=== PATIENT | female | born 1960 | race Caucasian/White ===

== ENCOUNTER → 2017-12-15 12:14 | Outpatient (CLI) | payer BC, SELFPAY ==
[2017-12-15 15:31] LABS: Absolute Neutrophil Count 2.3 X10^3/uL (2.0-7.7); Basophil# 0.05 X10^3/uL; Eosinophil# 0.14 X10^3/uL; Eosinophils% 2.9 % (0-5); Hematocrit 39.9 % (37-47); Hemoglobin 13.1 g/dl (12.0-15.0); Mean Corp Hgb Conc 32.8 g/gl (32-36); Mean Corpuscular Hgb 27.4 pg (27.0-32.0); Mean Corpuscular Volume 83.5 fL (81-99); Mean Platelet Vol. 12.2 fl (6.2-12.0); Monocyte# 0.27 X10^3/uL; Monocyte% 5.5 % (0-10); Neutrophil # 2.31 X10^3/uL (2.7-7.7); Neutrophil % 47.4 % (47-70); Platelet Count 225 K/mm3 (150-450); RBC Distribution Width CV 13.1 % (11.6-14.6); RBC Distribution Width SD 39.4 fl (35.1-43.9); Red Blood Count 4.78 M/mm3 (4.2-5.4); White Blood Count 4.9 K/mm3 (4.4-11.0)
[2017-12-15 15:46] LABS: Anion Gap 7 (5-15); BUN 13 mg/dL (7-18); BUN/Creat Ratio 16.2 RATIO (10-20); Calcium,Total 8.9 mg/dL (8.5-10.1); Chloride 110 mmol/L (98-107); Cholesterol 185 mg/dL (200); EST Glomerular Filtration Rate 78 mL/min (>60); Est Glom Filt Rate - Afr Amer 94 mL/min (>60); Glucose 95 mg/dL (74-106); High Density Lipoprotein 75 mg/dL; Sodium Level 142 mmol/L (136-145); Thyroid Stim Hormone (TSH) 1.35 uIU/mL (0.358-3.74); Triglycerides 67 mg/dL; Very Low Density Lipoprotein 13 mg/dL (5-40)
[2017-12-15 15:52] LABS: POSITIVE COUNT NO; POSITIVE DIFFERENTIAL NO; POSITIVE MORPHOLOGY NO
== END ==
LOC: MFPLAB 12:16
PROVIDERS: Family Provider Family Medicine; PCP Family Medicine; Visit Provider Family Medicine
DX: I10 Essential (primary) hypertension (principal)
CPT/HCPCS: 36415; 80048; 80061; 84443; 85025

== ENCOUNTER → 2020-08-13 09:20 | Outpatient (CLI) | payer BC, SELFPAY ==
[2020-08-13 12:52] LABS: Anion Gap 6 (5-15); BUN 14 mg/dL (7-18); BUN/Creat Ratio 15.1 RATIO (10-20); Calcium,Total 9.4 mg/dL (8.5-10.1); Chloride 104 mmol/L (98-107); Cholesterol 210 mg/dL (200); Creatinine, Serum 0.93 mg/dL (0.55-1.02); EST Glomerular Filtration Rate 65 mL/min (>60); Est Glom Filt Rate - Afr Amer 79 mL/min (>60); Glucose 83 mg/dL (74-106); High Density Lipoprotein 79 mg/dL; Potassium 3.8 mmol/L (3.5-5.1); Sodium Level 138 mmol/L (136-145); Triglycerides 57 mg/dL; Very Low Density Lipoprotein 11 mg/dL (5-40)
== END ==
PROVIDERS: PCP Family Medicine; Referring Provider Family Medicine; Visit Provider Family Medicine
DX: I10 Essential (primary) hypertension (principal)
CPT/HCPCS: 36415; 80048; 80061

== ENCOUNTER → 2022-06-30 | Outpatient (CLI) | payer OTHER, SELFPAY ==
[2022-07-18 20:12] LABS: HPV Reflexed? NOT INDICATED
== END | disposition home or self-care (01) ==
PROVIDERS: PCP Family Medicine; Referring Provider Family Medicine; Visit Provider Family Medicine
DX: Z12.4 Encounter for screening for malignant neoplasm of cervix (principal)
CPT/HCPCS: 87491; 87591; 88175; G0145

== ENCOUNTER → 2022-08-21 | Outpatient (CLI) | payer OTHER, SELFPAY ==
--- NOTE | 2022-08-21 10:00 | BI_ITS ---
MAMMOGRAPHY - BILATERAL SCREENING REASON FOR EXAM: Female, 62 years old. Routine annual screening examination. PERTINENT HISTORY: Non-contributory. TECHNIQUE: Digital bilateral breast samantha (3D mammographic acquisition) in the CC and MLO projections. 2-D mediolateral oblique (MLO) and craniocaudad (CC) views of both breasts were obtained. CAD: Full Field Digital Mammography with Computer Added Detection was performed. COMPARISON: 05/04/2015, 02/06/2011 FINDINGS: Breast Composition: The breasts are heterogeneously dense, which may obscure small masses. There are no dominant masses or suspicious calcifications. No other significant abnormalities are identified. There has been no significant change since the prior study. BI/SCRN MAMM (CAD)W/SAMANTHA BILAT IMPRESSION: Stable bilateral screening mammogram. Yearly follow-up mammogram recommended. (A) ASSESSMENT CATEGORY: BIRADS Category 1: Negative. A letter regarding these results will be sent to the patient by the facility within 30 days. Approximately 10% of breast cancers are not detected by mammography. A normal mammogram should not delay biopsy of a clinically suspicious abnormality. Electronically Signed: Bobby Mckee, at 17:14 EST ,
--- NOTE | 2022-08-21 10:05 | BD_ITS ---
STUDY: DUAL ENERGY X-RAY ABSORPTIOMETRY / DXA REASON FOR EXAM: Female, 62 years old. N95.9 TECHNIQUE: Bone Mineral Density (BMD) measurements of lumbar spine and bilateral hips were obtained. COMPARISON: Comparison is made with prior study dated 10/09/2010. FINDINGS: Lumbar Spine (L1-L4): g/cm2 (0.697) / T-score (-3.2) / Z-score (-1.5) Findings are suggestive of osteoporosis with a high fracture risk. Left Femur Total: g/cm2 (0.727) / T-score (-1.8) / Z-score (-0.6) Left Femoral Neck: g/cm2 (0.555) / T-score (-2.7) / Z-score (-1.2) Right Femur Total: g/cm2 (0.637) / T-score (-2.5) / Z-score (-1.3) Right Femoral Neck: g/cm2 (0.585) / T-score (-2.4) / Z-score (-0.9) The T-Scores on the most recent prior examination were: Lumbar Spine (L1-L4): There has been worsening of bone density since the previous examination. Left Femur Total: which represents a worsening of 5.8%. Right Femur Total: which represents a worsening of 16.5%. BD/Dexa Bone Density Study IMPRESSION: The patient is considered osteoporotic as outlined below according to World Soham Organization (WHO) criteria with a high fracture risk. There has been worsening of bone density since the previous examination. Reference Information: The T-score is the number of standard deviations above or below the standard which is normal for young adults at their peak bone mineral density. The World Health Organization (WHO) interprets the T-scores as follows: Above -1 Normal bone density Between -1 and -2.5 Osteopenia Equal to / or below -2.5 Osteoporosis As a practical clinical guideline, osteopenia may be graded as follows: Mild -1 through -1.5 Moderate -1.6 through -2.0 Severe -2.1 through -2.4 The Z-score is the number of standard deviations above or below age-matched controls. A Z-score of less than -1.5 would be considered abnormal. References: 1. NIH Osteoporosis and Related Bone Diseases www osteo.org 2. International Society for Clinical Densitometry www iscd.org 3. National Osteoporosis Foundation www nof.org Electronically Signed: Israel Herron MD at 15:47 EST ,
== END | disposition home or self-care (01) ==
LOC: OPBD 09:57
PROVIDERS: PCP Family Medicine; Visit Provider Family Medicine
DX: Z00.00 Encounter for general adult medical examination without abnormal findings (principal); Z12.31 Encounter for screening mammogram for malignant neoplasm of breast; M81.0 Age-related osteoporosis without current pathological fracture; N95.9 Unspecified menopausal and perimenopausal disorder
CPT/HCPCS: 77063; 77067; 77080

== ENCOUNTER → 2023-09-24 | Outpatient (CLI) | payer OTHER, SELFPAY ==
--- NOTE | 2023-09-24 11:01 | BI_ITS ---
MAMMOGRAPHY - BILATERAL SCREENING REASON FOR EXAM: Female, 63 years old. Routine annual screening examination. PERTINENT HISTORY: Non-contributory. TECHNIQUE: Digital bilateral breast samantha (3D mammographic acquisition) in the CC and MLO projections. 2-D mediolateral oblique (MLO) and craniocaudad (CC) views of both breasts were obtained. CAD: Full Field Digital Mammography with Computer Added Detection was performed. COMPARISON: Comparison is made with prior examination dated August 21, 2022 and May 04, 2015. FINDINGS: Breast Composition: The breasts are heterogeneously dense, which may obscure small masses. There are no dominant masses or suspicious calcifications. Stable benign-appearing bilateral axillary lymph nodes. No other significant abnormalities are identified. There has been no significant change since the prior study. BI/SCRN MAMM (CAD)W/SAMANTHA BILAT IMPRESSION: Stable bilateral screening mammogram. Yearly follow-up mammogram recommended. (A) ASSESSMENT CATEGORY: BIRADS Category 3: Probably Benign - Short-Interval Follow-up Suggested. A letter regarding these results will be sent to the patient by the facility within 30 days. Approximately 10% of breast cancers are not detected by mammography. A normal mammogram should not delay biopsy of a clinically suspicious abnormality. [id number] Electronically Signed: Israel Herron MD at 13:42 EST ,
--- OUTSIDE RECORDS SUMMARY | 2023-09-24 13:04 | XMS RPT_ITS | CCD ---
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 Name Role Phone PAULA HECK Attending Unavailable PAULA HECK Primary Care Unavailable PAULA HECK Admitting Unavailable Rosalinda Shrestha PA-C Unavailable Medications Current Medications Medication Drug Class(es) Dates Sig (Normalized) Sig (Original) Algae Based Calcium 333.33 mg-6.67 mcg-32 mg tablet (oral) (1 source) Algae Based Calc ium 333.33 mg-6.67 mcg-32 mg tablet (oral) ; (333.33 mg-6.67 mcg-32 mg) aspirin 81 mg delayed release oral tablet (1 source) Platelet Aggregation Inhibitor, Nonsteroidal Anti-inflammatory Drug aspirin 81 mg tablet,delayed release ; (81 mg) turmeric root extract 500 mg capsule (1 source) turmeric root extract 500 mg capsule ; 2 a day (500 mg) Problems Active Problems Problem Classification Problem Date Documented Da te Episodic/Chronic Osteoarthritis (3 sources) Unilateral primary osteoarthritis, left knee; Translations: [Unilateral primary osteoarthritis, left knee] Onset: 09-26-2020 Chronic Osteoporosis (2 sources) Osteoporosis; Translations: [Age-related osteoporosis without current pathological fracture] 09-18-2023 Chronic Other circulatory disease (2 sources) Elevated blood pressure; Translations: [Elevated blood-pressure reading, without diagnosis of hypertension] 09-18-2023 Episodic Other non-traumatic joint disorders (1 source) Pain in left knee; Translations: [Pain in left knee] Onset: 09-26-2020 Episodic Other screening for suspected conditions (not mental disorders or infectious disease) (6 sources) Patient encounter status; Translations: [Encounter for screening for diabetes mellitus] 09-18-2023 Episodic Other skin disorders (2 sources) Eruption; Translations: [Rash and other nonspecific skin eruption] 09-18-2023 Episodic Residual codes; unclassified (2 sources) Colon cancer screening declined; Translations: [Procedure and treatment not carried out because of patient's decision for unspecified reasons] 09-18-2023 Episodic Unclassified (1 source) Number of Children 09-18-2023 Past or Other Problems Problem Classification Problem Date Documented Da te Episodic/Chronic Unclassified (1 source) Well adult female - The patient feels well with minor complaints, has good energy level and is sleeping well. The patient has a balanced diet and takes supplemental vitamins. The patient does not exercise. The patient sleeps 5 hours per night. Note for Well adult female : Patient is fasting for labs today.Due for colon cancer screening - reports is has been many years since her last colonoscopy and she would like to avoid having another one if possible. She denies any family history of colon cancer.Patient reports an intermittent rash under her breasts for at least several months. She has been using a topical treatment OTC that she reports is effective, but the rash keeps returning.Patient reports that she was diagnosed just over a year ago with osteoporosis. Her previous doctor wanted to start her on a prescription medication, but she preferred to try supplementation with Vitamin D, calcium, and some other supplements. She would like to have a vitamin D level checked at this time.Patient also reports that her previous doctor diagnosed her with hypertension, but did not start her on any medication and told her not to worry about it. They had told her to buy a new blood pressure cuff, but she has not done so yet. She has been checking her blood pressure at home with her old cuff and does not have recorded readings with her today. She is concerned about her blood pressure, especially since her father had a stroke. 09-18-2023 Results Test Name Value Interpretation Reference Range Facil ity Vital Signs Date Time Vital Sign Value Performing Clinician Tyrese nelson 09-18-2023 08:22-0500 Body height 149.86 cm Rosalinda Shrestha PA-C Work Phone: [facility] 09-18-2023 08:22-0500 Body mass index (BMI) [Ratio] 28.07 kg/m2 Rosalinda Shrestha PA-C Work Phone: [facility] [employer]; [facility]. 09-18-2023 08:22-0500 Body surface area Derived from formula 1.58 m2 Rosalinda Shrestha PA-C Work Phone: [facility] [employer]; [facility] 09-18-2023 08:22-0500 Body weight 63.05 kg Rosalinda Shrestha PA-C Work Phone: [facility]; [facility] 09-18-2023 08:22-0500 Diastolic blood pressure 88 mm[Hg] Rosalinda Shrestha PA-C Work Phone: [facility]; [facility] Encounters Encounter Date Encounter Type Care Provider Facility Start: 09-18-2023 End: 09-18-2023 Initial preventive medicine new patient 63yrs&> Rosalinda Shrestha PA-C Work Phone: [facility] Start: 09-18-2023 End: 09-18-2023 Patient encounter status Rosalinda Shrestha PA-C Work Phone: [employer] [employer]; [facility] Start: 09-26-2020 End: 12-19-2020 ambulatory [facility] Follow-up encounter Rosalinda Candis Terrell velazquez PA-C Work Phone: [facility] [employer]; [facility] Procedures Date Procedure Procedure Detail Performing Clinician Start: 09-18-2023 End: 09-18-2023 Adv care pln/ no alt dcsn mkr docd or refusal Rosalinda Shrestha PA-C Work Phone: Start: 09-18-2023 End: 09-18-2023 PPPS, subseq visit Roslainda Shrestha PA-C Work Phone: Plan of Treatment Date Care Activity Detail Author Start: 09-18-2023 Screening mammograph y bi 2-view breast inc cad Mammogram Bilateral Screening Digital w/CAD (26098) with 3D (tomosynthesis), bilateral (37020) Start: 18-Sep-2023 Intent [facility]; [facility]. Start: 09-18-2023 25 hydroxy includes fractions if performed Vitamin D, 25-Hydroxy, LC/MS/MS (41802) Start: 18-Sep-2023 8:54 Request [facility]; [facility]. Start: 09-18-2023 Comprehensive metabo lic panel CMP w/ GFR* (79412) Start: 18-Sep-2023 8:53 Request [facility]; [facility]. Start: 09-18-2023 Lipid panel LIPID PANEL (8 [id number]) Start: 18-Sep-2023 8:52 Request [facility]; [facility] Payers Date Payer Category Payer Unknown [id number] Unknown [id number] Unknown [employer] Social History Date Type Detail Facility Current Work/Study Status Current Work/St udy Status [employer] [employer] Work Phone: Tobacco smoking consumption unknown [employer]; [employer] Work Phone: Summary Purpose Family History No Family History Records Found Arthritis Status:Active Comments:Sister. Heart Disease Status:Active Comments:Brother . Sister. Mother. Hypertension Status:Active Comments:Brother . Sister. Father. MS Status:Active Comments:Mother. Elkrkh-Ky-Ielwllkmt Syndrome Status:Active Com ments:Father. Advance Directives No Advanced Directives Records FoundNo Advanced Directives Records Found Additional Source Comments INFORMATION SOURCE (unrecogn ized section and content) DATE CREATED AUTHOR AUTHOR'S ORGANIZ ATION 09/20/2023 [facility] FOR RECORDS PERTAINING TO PATIENTS WHO ARE OR HAVE BEEN ENROLLED IN A CHEMICAL DEPENDENCY/SUBSTANCEABUSE PROGRAM, SOME INFORMATION MAY BE OMITTED. This clinical summary was aggregated from multiple sources. Caution should be exercised in using it in the provision of clinical care. This summary normalizes information from multiple sources, and as a consequence, information in this document may materially change the coding, format and clinical context of patient data. In addition, data may be omitted in some cases. CLINICAL DECISIONS SHOULD BE BASED ON THE PRIMARY CLINICAL RECORDS. [facility]. provides no warranty or guarantee of the accuracy or completeness of information in this document.
== END | disposition home or self-care (01) ==
LOC: OPBI 10:59
DX: Z12.31 Encounter for screening mammogram for malignant neoplasm of breast (principal)
CPT/HCPCS: 77063; 77067

== ENCOUNTER → 2024-10-26 | Outpatient (CLI) | payer OTHER, SELFPAY ==
--- NOTE | 2024-10-26 07:35 | BD_ITS ---
PROCEDURE: DEXA BONE DENSITY STUDY REASON FOR EXAM: F, age 64 y/o . Postmenopausal. TECHNIQUE: DEXA scan of the lumbar spine and both hips. COMPARISON: Comparison is made with prior study August 21, 2022. FINDINGS: Lumbar Spine (L1-L4): g/cm2 (0.791)/T-score (-2.4)/Z-score (-0.5) findings are suggestive of osteopenia with a high fracture risk. Left Femur Total: g/cm2 (0.758)/T-score (-1.5)/Z-score (-0.2) Left Femoral Neck: g/cm2 (0.625)/T-score (-2.0)/Z-score (-0.4) Right Femur Total: g/cm2 (0.747)/T-score (-1.6)/Z-score (-0 point) Right Femoral Neck: g/cm2 (0.651)/T-score (-1.8)/Z-score (-0 point) The T-Scores on the most recent prior examination were: Lumbar Spine (L1-L4): There has been improvement of bone density since the previous examination. Left Femur Total: Improvement of 4.3%. Right Femur Total: Improvement of 17.2%. BD/Dexa Bone Density Study IMPRESSION: The patient is considered osteopenic as outlined below according to World Soham Organization (WHO) criteria with a high fracture risk. There has been improvement of bone density since the previous examshruti harris Reading Location: [facility]
== END | disposition home or self-care (01) ==
LOC: OPBD 07:32
DX: M81.0 Age-related osteoporosis without current pathological fracture (principal)
CPT/HCPCS: 77080